=== PATIENT | male | born 1950 | race Caucasian/White ===

== ENCOUNTER 2018-10-18 12:46 | Emergency (ER) | payer BC, MEDICARE ==
[2018-10-18 12:51] VITALS: RESP 18
[2018-10-18] MEDS ORDERED: KETOROLAC 30 MG/ML 1 ML VIAL IVP STA (14:50)
[2018-10-18 14:53] LABS: Basophils # (A) 0.1 k/uL (0-0.2); Basophils % (A) 1 %; Eosinophils # (A) 0.3 k/uL (0-0.7); Eosinophils % (A) 2 %; HCT 43.2 % (39.0-53.0); HGB 14.2 gm/dL (13.0-17.5); Lymphocytes % (A) 13 %; MCH 29.3 pg (25.0-35.0); MCV 88.8 fL (80.0-100.0); Mean Platelet Volume 7.3; Monocytes % (A) 7 %; Neutrophils # (A) 11.5 k/uL (1.3-7.7); Neutrophils % (A) 76 %; Platelet Count 389 k/uL (150-450); RBC 4.87 m/uL (4.30-5.90); RDW 13.8 % (11.5-15.5); WBC 15.2 k/uL (3.8-10.6)
[2018-10-18] MEDS ORDERED: BENZOCAINE SPRAY 1 CAN TOPICAL STA (14:57)
--- NOTE | 2018-10-18 15:03 | ED ---
ENT HPI - General Chief complaint: ENT Stated complaint: Throat issue Time Seen by Provider: 10/18/18 14:08 Source: patient Mode of arrival: ambulatory Limitations: no limitations - History of Present Illness Initial comments: Patient is a 68-year-old male presenting to the emergency department with a sore throat. Patient reports the sore throat about 10 days ago when he visited urgent care and given steroids and antihistamine. Patient reports his symptoms improved david sundar it flared up again. Patient reports he went to urgent care again this morning where he was diagnosed with a peritonsillar abscess. The urgent care provider gave him a referral for the emergency department. Patient reports taking Tylenol to alleviate the pain. Patient reports dysphagia but denies fevers, headache, nausea, vomiting. Patient reports slight change in his voice. Patient denies any shortness of breath. - Related Data Previous Rx's Medication Instructions Recorded Clindamycin HCl 300 mg PO Q6HR #40 cap 10/18/18 predniSONE 50 mg PO DAILY #5 tab 10/18/18 Allergies Allergy/AdvReac Type Severity Reaction Status Date / Time No Known Allergies Allergy Verified 10/18/18 12:51 Review of Systems ROS Statement: Those systems with pertinent positive or pertinent negative responses have been documented in the HPI. ROS Other: All systems not noted in ROS Statement are negative. Past Medical History Past Medical History: Hyperlipidemia, Hypertension, Thyroid Disorder History of Any Multi-Drug Resistant Organisms: None Reported Past Surgical History: Back Surgery, Orthopedic Surgery Past Psychological History: No Psychological Hx Reported Smoking Status: Former smoker Past Alcohol Use History: Daily Past Drug Use History: None Reported General Exam Limitations: no limitations General appearance: alert, in no apparent distress Head exam: Present: atraumatic, normocephalic Eye exam: Present: normal appearance ENT exam: Present: mucous membranes moist, TM's normal bilaterally, other. Absent: normal oropharynx (Right peritonsillar swelling with mild contralateral uvular displacement.) Neck exam: Present: normal inspection. Absent: tenderness, lymphadenopathy Respiratory exam: Present: normal lung sounds bilaterally Cardiovascular Exam: Present: regular rate, normal rhythm, normal heart sounds Neurological exam: Present: alert, oriented X3 Psychiatric exam: Present: normal affect, normal mood Skin exam: Present: warm, intact, normal color Course Vital Signs 10/18/18 12:47 Temperature 98.2 F Pulse Rate 81 Respiratory 18 Rate Blood Pressure 140/78 O2 Sat by Pulse 99 Oximetry Procedures - Incision & Drainage Consent Obtained: verbal consent Site: other ([place]) Anesthetic Used: benzocaine 0.25% Sterile Field Used?: No Needle Aspiration Performed?: Yes Irrigation Performed?: No I&D Drainage Obtained: Pus, Blood Culture Obtained?: No Patient Tolerated Procedure: well Medical Decision Making - Medical Decision Making Patient is a 68-year-old male presents emergency department for a sore throat. CBC and CMP were obtained. Incision and drainage of the peritonsillar abscess was performed by Dr. Park. Patient was also given clindamycin and a liter of fluids. Patient will be discharged with a 10 day course of clindamycin and a 5 day course of prednisone.. Patient advised to follow-up with primary care. Patient advised to return to emergency department if symptoms worsen. Case discussed with physician. - Lab Data Result diagrams: 10/18/18 14:31 10/18/18 14:31 Lab Results 10/18/18 10/18/18 Range/Units 14:31 14:31 WBC 15.2 H (3.8-10.6) k/uL RBC 4.87 (4.30-5.90) m/uL Hgb 14.2 (13.0-17.5) gm/dL Hct 43.2 (39.0-53.0) % MCV 88.8 (80.0-100.0) fL MCH 29.3 (25.0-35.0) pg MCHC 33.0 (31.0-37.0) g/dL RDW 13.8 (11.5-15.5) % Plt Count 389 (150-450) k/uL Neutrophils % 76 % Lymphocytes % 13 % Monocytes % 7 % Eosinophils % 2 % Basophils % 1 % Neutrophils # 11.5 H (1.3-7.7) k/uL Lymphocytes # 2.0 (1.0-4.8) k/uL Monocytes # 1.0 (0-1.0) k/uL Eosinophils # 0.3 (0-0.7) k/uL Basophils # 0.1 (0-0.2) k/uL Sodium 139 (137-145) mmol/L Potassium 5.3 H (3.5-5.1) mmol/L Chloride 103 (98-107) mmol/L Carbon Dioxide 24 (22-30) mmol/L Anion Gap 12 mmol/L BUN 14 (9-20) mg/dL Creatinine 0.94 (0.66-1.25) mg/dL Est GFR (CKD-EPI)AfAm >90 (>60 ml/min/1.73 sqM) Est GFR (CKD-EPI)NonAf 85 (>60 ml/min/1.73 sqM) Glucose 107 H (74-99) mg/dL Calcium 10.1 (8.4-10.2) mg/dL Total Bilirubin 0.5 (0.2-1.3) mg/dL AST 22 (17-59) U/L ALT 28 (21-72) U/L Alkaline Phosphatase 100 (38-126) U/L Total Protein 8.7 H (6.3-8.2) g/dL Albumin 4.8 (3.5-5.0) g/dL Disposition Clinical Impression: Peritonsillar abscess determined by examination Disposition: HOME SELF-CARE Condition: Stable Instructions (If sedation given, give patient instructions): Peritonsillar Abscess (DC) Additional Instructions: Take prescribed medication as directed. Please follow-up with primary care. Please return to emergency department if symptoms worsen. Prescriptions: Clindamycin HCl 300 mg PO Q6HR #40 cap Is patient prescribed a controlled substance at d/c from ED?: No Referrals: Joseph Mendieta DO [Primary Care Provider] - 1-2 days
[2018-10-18] MEDS ORDERED: SODIUM CHLORIDE 0.9% 1,000 ML IV STA (15:04)
[2018-10-18 15:05] LABS: ALT 28 U/L (21-72); AST 22 U/L (17-59); Albumin 4.8 g/dL (3.5-5.0); Alkaline Phosphatase 100 U/L (38-126); Anion Gap 12 mmol/L; Blood Urea Nitrogen 14 mg/dL (9-20); Calcium 10.1 mg/dL (8.4-10.2); Carbon Dioxide 24 mmol/L (22-30); Chloride 103 mmol/L (98-107); Glucose 107 mg/dL (74-99); Potassium 5.3 mmol/L (3.5-5.1); Sodium 139 mmol/L (137-145); Total Bilirubin 0.5 mg/dL (0.2-1.3); Total Protein 8.7 g/dL (6.3-8.2)
[2018-10-18] MEDS ORDERED: CLINDAMYCIN 600 MG in DEXTROSE 5% IN WATER 50 ML IVPB ONE ×2 (17:00)
[2018-10-18 17:40] VITALS: BP 127/68; PULSE 72; TEMP 98.4
[2018-10-18] MEDS ORDERED: CLINDAMYCIN 150 MG/ML 4 ML VIAL IM SCH (18:00)
[2018-10-19] MEDS ORDERED: CLINDAMYCIN 600 MG in DEXTROSE 5% IN WATER 50 ML IVPB SCH ×2
== END 2018-10-18 17:39 | disposition home or self-care (01) ==
LOC: EC 12:46
DX: J36 Peritonsillar abscess (principal); Z87.891 Personal history of nicotine dependence
CPT/HCPCS: 36415; 80053; 85025; 99284; 42700; 96365; 96375; 96361; J1885

== ENCOUNTER → 2023-06-29 | Outpatient (CLI) | payer MEDICARE ==
[2023-06-29 09:47] VITALS: BP 147/78; PULSE 89; RESP 15; TEMP 98.7
--- NOTE | 2023-06-29 13:59 | P.PAINPG ---
PQRS Measure Charge Sheet Comment: HISTORY OF PRESENT ILLNESS: A 72 yr old male w at side as a referral from Dr Mendieta presents today w severe and chronic mid and lower back pain x 6 mo secondary to post laminectomy syndrome for evaluation. Pt states pain level is provoked at 9 /10 in intensity, constant, localized in the lumbar spine, predominantly axial, achy in character w occasional shooting pain towards the RLE. Pain is provoked by over activity. Pain is alleviated by PT 20 yrs ago, alternating heat & ice, medications (Tyl, Ibu), physician guided home stretches every morning x 2 mo which he currently does, repositioning and rest. Oswestry axial pain score at 37. PMH: OA, Hyperlipidemia, HTN, Hypothyroid Disorder PSH: Lumbar surgery SH: Former tobacco user, Daily ETOH use, No illicit drug use FH: Non contributory All: See list Meds: See list REVIEW OF ORGAN SYSTEMS: CONSTITUTIONAL: No fevers or chills. No recent weight loss. NEUROLOGICAL: + numbness and tingling along the distal extremities. No seizure disorders or headaches. MUSCULOSKELETAL: + pain PSYCHIATRIC: Denies current depression or suicidal thoughts. Physical Examinations : Constitutional : Cooperative , not in acute distress . Neurologic : Cranial nerve II to XII intact. No focal neurological deficits. Psychiatric : alert & oriented x 3. Matching mood & appropriate affect. Judgment & insight intact. Musculoskeletal : Cervical Spine Motor strength in the deltoid and biceps: Normal right side. Normal Left side Motor strength biceps and the wrist extensors: Normal right side . Normal left side Motor strength in the triceps muscle: Normal right side. Normal left side Deep tendon reflexes: Normal at the biceps. Normal at Brachioradialis. Normal at triceps Vertebral body tenderness to deep palpation over Cervical facet loading test: positive bilaterally Spurling test: positive bilaterally Neck distraction test: positive bilaterally Alvarado sign: positive bilaterally Lumbar spine Motor strength lower extremities ,thigh and legs 5/5 Right side , 5/5 Left side Deep tendon reflexes : Normal Knee J erk. Normal Ankle Jerk Vertebral body tenderness over L4 Capellan Test positive Lumbar facet Loading Test: positive Right / positive Left Range of motion of the lumbar spine Flexion 30 degrees, extension 10 degrees Straight Leg Raise test: Left/ Right positive at <30 degrees Abbey test: positive right / positive left. Severe tenderness over the Sacroiliac joint on the Right / Left sides Gaenslen test: positive bilaterally Seated flexion test: positive bilaterally. Sacral spine : Severe tenderness over the Sacroiliac joint: right side / left side Range of motion: Flexion of the lumbar spine <60 degrees Range of motion: Extension of the lumbar spine <20 degrees Gaenslen's Test positive Abbey test: positive right side / left side Thigh Thrust Test Sacral Thrust Test Imaging: MRI noncontrast of the lumbar spine from 04/06/23 reviewed Assessment/ Plan : Lumbar stenosis, lumbar DDD Recommendation of R TFESI L4-L5 #1. May need a series of injections for optimal pain relief. Risks, benefits of procedure discussed and patient verbalized understanding. Admits to anti- coagulant use or medical history of diabetes. Protocol for discontinuation/ continuation of medications yoko procedure discussed. All questions answered. I have spent greater than 30 minutes on patient care today. Dr Snow was available by phone for the evaluation of this patient. The time was used to review the medical records including relevant urine studies and Prescription history (MAPs), review of the available imaging, evaluation and examination of the patient, coordination of care with the medical staff and if applicable referring physicians, as well as creation of the medical record - Pain Location Bilateral Medial Back Non-Pharmacological Interventions: Heat, Ice, Inactivity, Position/Reposition Pharmacological Interventions: PRN Medication PQRS Narrative: Smoking Status Former smoker Home Medications: Ambulatory Orders clindamycin HCL [Clindamycin HCl] 300 mg PO Q6HR #40 cap 10/18/18 predniSONE 50 mg PO DAILY #5 tab 10/18/18 diazePAM [Valium] 5 mg PO DAILY PRN 1 Days #2 tab 06/29/23 Controlled Substance Measures - Controlled Substance Measures Is patient prescribed a controlled substance at discharge?: Yes When asked, does pt state using other controlled substances?: No If prescribed controlled substance>3 days was MAPS reviewed?: Prescribed <3 Days
== END ==
LOC: PNWHC3 08:48
PROVIDERS: ATTEND Specialist
DX: M48.061 Spinal stenosis, lumbar region without neurogenic claudication (principal); M51.16 Intervertebral disc disorders with radiculopathy, lumbar region; M47.26 Other spondylosis with radiculopathy, lumbar region; M19.90 Unspecified osteoarthritis, unspecified site; E78.5 Hyperlipidemia, unspecified; I10 Essential (primary) hypertension; E03.9 Hypothyroidism, unspecified; Z87.891 Personal history of nicotine dependence
CPT/HCPCS: 99211

== ENCOUNTER 2023-07-14 07:59 | Day surgery (SDC) | payer MEDICARE ==
[2023-07-10 14:35] VITALS: BMI 29.4
[~2023-07-14 07:59] MED LIST: LACTATED RINGERS 1,000 ML IV SCH
[2023-07-14 08:33] VITALS: TEMP 96.6
[2023-07-14] MEDS ORDERED: DEXAMETHASONE SOD PHOSPHATE 10 MG/ML 1 ML VIAL ONE (09:13)
[2023-07-14] MEDS ORDERED: IOPAMIDOL M300 15ML VIAL ONE (09:13)
[2023-07-14] MEDS ORDERED: ROPIVACAINE 5MG/ML 20ML VIAL ONE (09:13)
--- NOTE | 2023-07-14 09:50 | P.PCN ---
Description of Procedure: PREOPERATIVE DIAGNOSIS: 1-Lumbar radiculopathy . 2-lumbar degenerative disc disease. 3-lumbar spondylosis with lumbar facet arthropathy without myelopathy POSTOPERATIVE DIAGNOSIS: 1-lumbar radiculopathy. 2-lumbar degenerative disc disease. 3-lumbar spondylosis with facet arthropathy without myelopathy PROCEDURE 1. Transforaminal epidural steroid injection under fluoroscopic guidance at RIGHT L4-5 level. (Fluoroscopy images stored on file in the radiology Department ) 2. Lumbar epidurogram . ANESTHESIA: Local with 1% lidocaine 5 ml. subcutaneously. Continuous pulse ox, EKG, blood pressure and verbal communication was maintained with the patient. EBL: Minimal PROCEDURE INDICATION: The patient with low back pain and radiculopathy symptoms unresponsive to conservative treatment. The patient was seen and identified in the preoperative area. Risks, benefits, complications, and alternatives were discussed with the patient. The patient agreed to proceed with the procedure and signed the consent. IV was started, and vital signs were stable. PROCEDURE DESCRIPTION / TECHNIQUE: After getting consent, patient was taken to the OR and time out was completed. The patient was placed in the prone position on procedure table and a pillow was placed under the abdomen to reduce lumbar lordosis. The lumbosacral area was prepped and draped in the usual sterile fashion. Critical pause was taken. After injecting 5 mL of plain 1% lidocaine subcutaneously, under oblique view of the fluoroscope, a 22-gauge spinal needle was introduced under the tunnel view of the fluoroscope on the RIGHT side and the needle was advanced so that the tip of the needle was at the posterior inferior quadrant of the intervertebral foramen at the lateral view of the fluoroscope and in the lateral third of the facet column in the AP view of the fluoroscope. Negative CSF, negative blood, negative paresthesia. After needle position confirmation by AP and cross table lateral view, 3 mL of Isovue-M 200 contrast was injected under continuous fluoroscope. No contrast was noted in the intrathecal or intravascular space. The epidurogram was noted. Again after repeated negative aspiration 2.5 mL solution was injected which consists 1.5 mL of normal saline mixed with 1 mL of 20 mg dexamethasone. Needle was removed . At the end of the procedure, skin was cleansed, and bandages were applied. DISPOSITION / PLANS: No complication. The patient tolerated the procedure well. The patient was placed in a supine position and transferred to the recovery area in a stable condition for observation. There was no evidence of lower extremity motor or sensory deficit after the procedure. Patient was discharged from the recovery room after meeting discharge criteria. Home discharge instructions were given to the patient by the staff. The patient was reexamined prior to discharge. CONSIDER CAUDAL SHELDON NEXT PROCEDURE
[2023-07-14] MEDS: HYDROcodone/APAP 7.5-325MG 1 EACH TAB PO ONE (09:55)
[2023-07-14 11:07] VITALS: BP 127/78; PULSE 78; RESP 18
--- NOTE | 2023-07-14 11:16 | FL ---
EXAMINATION TYPE: FL guided pain mgmt statistic Intraoperative/procedural fluoroscopic services were provided. Total fluoroscopy time is 66.5 seconds with a total of 3 submitted images to PACS. Please s ee the operative/procedural note for further details. DAP: [id number] mGym2
== END 2023-07-14 11:03 | disposition home or self-care (01) ==
LOC: ORPAIN 07:59
PROVIDERS: ATTEND Pain Medicine Interventional Pain Medicine
DX: M51.16 Intervertebral disc disorders with radiculopathy, lumbar region (principal); M47.26 Other spondylosis with radiculopathy, lumbar region
CPT/HCPCS: 64483; J1100; Q9967; J2795

== ENCOUNTER → 2023-08-05 | Outpatient (CLI) | payer MEDICARE ==
[2023-08-05 09:25] VITALS: BP 123/63; PULSE 89; RESP 15; TEMP 98.6
--- NOTE | 2023-08-05 12:40 | P.PAINPG ---
PQRS Measure Charge Sheet Comment: HISTORY OF PRESENT ILLNESS: A 72 yr old male w at side presents today w severe and chronic mid and lower back pain x 6 mo secondary to post laminectomy syndrome for evaluation s/p R TFESI L4-L5 #1. Pt states he experienced 70 % pain relief x 3 wks s/p procedure. Pt states pain level is provoked at 5 /10 in intensity, constant, localized in the lumbar spine, predominantly axial, achy in character w occasional shooting pain towards the RLE. Pain is provoked by over activity. Pain is alleviated by PT 20 yrs ago, alternating heat & ice, medications, physician guided home stretches every morning x 2 mo which he currently does, repositioning and rest. Oswestry axial pain score at 34. Interventional procedures include R TFESI L4-L5 x1 Medications include Tyl, Ibu REVIEW OF ORGAN SYSTEMS: CONSTITUTIONAL: No fevers or chills. No recent weight loss. NEUROLOGICAL: + numbness and tingling along the distal extremities. No seizure disorders or headaches. MUSCULOSKELETAL: + pain PSYCHIATRIC: Denies current depression or suicidal thoughts. Physical Examinations : Constitutional : Cooperative , not in acute distress . Neurologic : Cranial nerve II to XII intact. No focal neurological deficits. Psychiatric : alert & oriented x 3. Matching mood & appropriate affect. Judgment & insight intact. Musculoskeletal : Cervical Spine Motor strength in the deltoid and biceps: Normal right side. Normal Left side Motor strength biceps and the wrist extensors: Normal right side . Normal left side Motor strength in the triceps muscle: Normal right side. Normal left side Deep tendon reflexes: Normal at the biceps. Normal at Brachioradialis. Normal at triceps Vertebral body tenderness to deep palpation over Cervical facet loading test: positive bilaterally Spurling test: positive bilaterally Neck distraction test: positive bilaterally Alvarado sign: positive bilaterally Lumbar spine Motor strength lower extremities ,thigh and legs 5/5 Right side , 5/5 Left side Deep tendon reflexes : Normal Knee Jerk. Normal Ankle Jerk Vertebral body tenderness over L4 Capellan Test positive Lumbar facet Loading Test: positive Right / positive Left Range of motion of the lumbar spine Flexion 30 degrees, extension 10 degrees Straight Leg Raise test: Left/ Right positive at <30 degrees Abbey test: positive right / positive left. Severe tenderness over the Sacroiliac joint on the Right / Left sides Gaenslen test: positive bilaterally Seated flexion test: positive bilaterally. Sacral spine : Severe tenderness over the Sacroiliac joint: right side / left side Range of motion: Flexion of the lumbar spine <60 degrees Range of motion: Extension of the lumbar spine <20 degrees Gaenslen's Test positive Abbey test: positive right side / left side Thigh Thrust Test Sacral Thrust Test Imaging: MRI noncontrast of the lumbar spine from 04/06/23 reviewed Assessment/ Plan : Lumbar stenosis, lumbar DDD Recommendation of PT x 6 wks w a focus on traction/ decompression of the lumbars tri. Recommendation of medication management Lyrica 75mg to titrate within 1 wk #60 w 1 RF. Use, side effects, adverse reactions, safe storage discussed. Opiate/ narcotic agreement signed 08/05/23 All questions answered. I have spent greater than 30 minutes on patient care today. Dr Snow was available by phone for the evaluation of this patient. The time was used to review the medical records including relevant urine studies and Prescription history (MAPs), review of the available imaging, evaluation and examination of the patient, coordination of care with the medical staff and if applicable referring physicians, as well as creation of the medical record PQRS Narrative: Smoking Status Former smoker Hx Alcohol Use (MH) No Home Medications: Ambulatory Orders diazePAM [Valium] 5 mg PO DAILY PRN 1 Days #2 tab 06/29/23 Acetaminophen [Tylenol Extra Strength] 500 - 1,000 mg PO Q4-6H PRN 07/10/23 Atorvastatin [Lipitor] 20 mg PO HS 07/10/23 Fenofibrate,Micronized [Fenofibrate] 134 mg PO QAM 07/10/23 Ibuprofen [Motrin Ib] 600 mg PO Q8H PRN 07/10/23 Levothyroxine Sodium 150 mcg PO QAM 07/10/23 lisinopriL [Prinivil] 10 mg PO QAM 07/10/23 Pregabalin [Lyrica] 75 mg PO BID 30 Days #60 cap 08/05/23 Controlled Substance Measures - Controlled Substance Measures Is patient prescribed a controlled substance at discharge?: Yes When asked, does pt state using other controlled substances?: No If prescribed controlled substance>3 days was MAPS reviewed?: Yes If Rx opioid, was Start Talking consent form obtained?: Yes Was information provided regarding opioid addiction?: Yes
== END ==
LOC: PNWHC3 08:31
PROVIDERS: ATTEND Specialist
DX: M51.36 Other intervertebral disc degeneration, lumbar region (principal); M47.816 Spondylosis without myelopathy or radiculopathy, lumbar region; M48.061 Spinal stenosis, lumbar region without neurogenic claudication; F12.90 Cannabis use, unspecified, uncomplicated; Z87.891 Personal history of nicotine dependence
CPT/HCPCS: 99211

== ENCOUNTER → 2023-09-30 | Outpatient (CLI) | payer MEDICARE ==
[2023-09-30 09:51] VITALS: BP 148/81; PULSE 57; RESP 16; TEMP 97.9
--- NOTE | 2023-09-30 15:48 | P.PAINPG ---
PQRS Measure Charge Sheet Comment: HISTORY OF PRESENT ILLNESS: A 72 yr old male w at side presents today w severe and chronic mid and lower back pain x 6 mo secondary to lumbar DDD, stenosis and facet arthropathy without myelopathy for medication refills. Pt states pain level is provoked at 5 /10 in intensity, constant, localized in the lumbar spine, predominantly axial, achy in character w occasional shooting pain towards the RLE. Pain is provoked by over activity. Pain is alleviated by PT x 6 wks which was completed Aug 2023, alternating heat & ice, medications, physician guided home stretches every morning x 2 mo which he currently does, repositioning and rest. Oswestry axial pain score at 34. Pt stated he will seek out a [facility] orthopedic surgeon for additional treatment options and continue to go to [place] [facility]. Interventional procedures include R TFESI L4-L5 x1 Medications include Tyl, Ibu REVIEW OF ORGAN SYSTEMS: CONSTITUTIONAL: No fevers or chills. No recent weight loss. NEUROLOGICAL: + numbness and tingling along the distal extremities. No seizure disorders or headaches. MUSCULOSKELETAL: + pain PSYCHIATRIC: Denies current depression or suicidal thoughts. Physical Examinations : Constitutional : Cooperative , not in acute distress . Neurologic : Cranial nerve II to XII intact. No focal neurological deficits. Psychiatric : alert & oriented x 3. Matching mood & appropriate affect. Judgment & insight intact. Musculoskeletal : Cervical Spine Motor strength in the deltoid and biceps: Normal right side. Normal Left side Motor strength biceps and the wrist extensors: Normal right side . Normal left side Motor strength in the triceps muscle: Normal right side. Normal left side Deep tendon reflexes: Normal at the biceps. Normal at Brachioradialis. Normal at triceps Vertebral body tenderness to deep palpation over Cervical facet loading test: positive bilaterally Spurling test: positive bilaterally Neck distraction test: positive bilaterally Alvarado sign: positive bilaterally Lumbar spine Motor strength lower extremities ,thigh and legs 5/5 Right side , 5/5 Left side Deep tendon reflexes : Normal Knee Jerk. Normal Ankle Jerk Vertebral body tenderness over L3 Capellan Test positive BL L3-L4 Lumbar facet Loading Test: positive Right / positive Left Range of motion of the lumbar spine Flexion 30 degrees, extension 10 degrees Straight Leg Raise test: Left/ Right positive at <30 degrees Abbey test: positive right / positive left. Severe tenderness over the Sacroiliac joint on the Right / Left sides Gaenslen test: positive bilaterally Seated flexion test: positive bilaterally. Sacral spine : Severe tenderness over the Sacroiliac joint: right side / left side Range of motion: Flexion of the lumbar spine <60 degrees Range of motion: Extension of the lumbar spine <20 degrees Gaenslen's Test positive Abbey test: positive right side / left side Thigh Thrust Test Sacral Thrust Test Imaging: MRI noncontrast of the lumbar spine from 04/06/23 reviewed Assessment/ Plan : Lumbar stenosis, lumbar DDD Recommendation of medication management. [place] 7.5/325gm #30 w 1 RF. [place] Opiate agreement signed . Lyrica 75mg #60 w 1 RF. Use, side effects, adverse reactions, safe storage discussed. Lyrica Opiate/ narcotic agreement signed 08/05/23 All questions answered. I have spent greater than 30 minutes on patient care today. Dr Snow was available by phone for the evaluation of this patient. The time was used to review the medical records including relevant urine studies and Prescription history (MAPs), review of the available imaging, evaluation and examination of the patient, coordination of care with the medical staff and if applicable refer ring physicians, as well as creation of the medical record - Pain Location Bilateral Lower Back Non-Pharmacological Interventions: Heat, Ice, Inactivity, Massage, Physical Therapy, Position/Reposition, Stretching Pharmacological Interventions: Epidural, PRN Medication, Topical Medication PQRS Narrative: Smoking Status Former smoker Hx Alcohol Use (MH) No Home Medications: Ambulatory Orders diazePAM [Valium] 5 mg PO DAILY PRN 1 Days #2 tab 06/29/23 Acetaminophen [Tylenol Extra Strength] 500 - 1,000 mg PO Q4-6H PRN 07/10/23 Atorvastatin [Lipitor] 20 mg PO HS 07/10/23 Fenofibrate,Micronized [Fenofibrate] 134 mg PO QAM 07/10/23 Ibuprofen [Motrin Ib] 600 mg PO Q8H PRN 07/10/23 Levothyroxine Sodium 150 mcg PO QAM 07/10/23 lisinopriL [Prinivil] 10 mg PO QAM 07/10/23 HYDROcodone/APAP 7.5-325MG [[place] 7.5-325] 1 tab PO QAM PRN 30 Days #30 tab 09/30/23 HYDROcodone/APAP 7.5-325MG [[place] 7.5-325] 1 tab PO QAM PRN 30 Days #30 tab 09/30/23 Pregabalin [Lyrica] 75 mg PO BID 30 Days #60 cap 09/30/23 Controlled Substance Measures - Controlled Substance Measures Is patient prescribed a controlled substance at discharge?: Yes When asked, does pt state using other controlled substances?: Yes If prescribed controlled substance>3 days was MAPS reviewed?: Yes
== END ==
LOC: PNWHC3 08:34
PROVIDERS: ATTEND Specialist
DX: M51.36 Other intervertebral disc degeneration, lumbar region (principal); M47.816 Spondylosis without myelopathy or radiculopathy, lumbar region; G89.29 Other chronic pain; M48.061 Spinal stenosis, lumbar region without neurogenic claudication; Z87.891 Personal history of nicotine dependence
CPT/HCPCS: 99211

== ENCOUNTER 2023-10-20 06:12 | Day surgery (SDC) | payer MEDICARE ==
[2023-10-20 06:56] VITALS: RESP 16; TEMP 96.9
[2023-10-20] MEDS ORDERED: IOPAMIDOL M200 10 ML VIAL ONE (07:13)
[2023-10-20] MEDS ORDERED: ROPIVACAINE 5MG/ML 20ML VIAL ONE (07:13)
[2023-10-20] MEDS ORDERED: TRIAMCINOLONE ACETONIDE 40 MG/ML 1 ML VIAL ONE (07:13)
--- NOTE | 2023-10-20 07:29 | P.PCN ---
Date of Procedure: 10/20/23 Surgeon: Aislinn Daly Pathology: none sent Condition: stable Disposition: PACU Description of Procedure: PREOPERATIVE DIAGNOSIS: 1-Lumbar radiculopathy 2- Lumber Degenerative Disc Diseases. 3-lumbar stenosis 4-postlaminectomy pain syndrome POSTOPERATIVE DIAGNOSIS: 1-Lumbar radiculopathy. 2-Lumbar Degenerative Disc Diseases PROCEDURE 1. Lumbar epidural steroid injection under fluoroscopic guidance at the L2-3 level the right paramedian approach 2. Lumbar epidurogram. 3.lumbar stenosis 4. Postlaminectomy pain syndrome ANESTHESIA: Local only with 1% lidocaine EBL: Minimal PROCEDURE INDICATION: The patient with low back pain and radiculitis symptoms unresponsive to conservative treatment. Fluoroscopy was used to optimize visualization of the needle placement and to maximize safety. The procedure was done at the L2-L3 level instead of L3-L4 level to have some distance from the patient's scar tissue from previous back surgery which puts him at higher risk for dural puncture. PROCEDURE DESCRIPTION / TECHNIQUE: The patient was seen and identified in the preoperative area. Risks, benefits, complications including but not limited to infections ,bleeding ,allergic reaction to the medications ,nerve damage and not complete pain relief , and alternatives were discussed with the patient. The patient agreed to proceed with the procedure and signed the consent. IV was started, and vital signs were stable. Patient was taken to the OR and time out was completed. The patient was placed in the prone position on procedure table and a pillow was placed under the abdomen to reduce lumbar lordosis. The lumbosacral area was prepped and draped in the usual sterile fashion with ChloraPrep.Patient was closely monitored during the procedure. Conscious sedation was used during the procedure to decrease patients anxiety. Vital signs were monitered during the entire procedure. Using anterior-posterior fluoroscopy, the L2-3 interlaminar space was identified and the skin over this site was marked and then infiltrated with 1% lidocaine subcutaneously. Subsequently, a 20-gauge Tuohy epidural needle was inserted and advanced toward the epidural space using the Loss of resistance to air technique and guided by AP and lateral fluoroscopy. The correct needle position in the epidural space was verified with the injection of 1 mL of the water soluble contrast dye Omnipaque 180 contrast and observing an excellent epidurogram with the epidural spread of the dye, after negative aspiration for blood and CSF and in the absence of paresthesias. Again after negative aspiration, a 8 ml mixture containing 40 mg of Kenalog and 5 ml of preservative free Normal Saline, and 2 ml of preservative free Ropivacaine 0.5% solution was injected and a washout of epidurogram was seen. Needle was withdrawn intact, skin was cleansed, and bandages were applied. patient tolerated procedure well and was transferred to PACU in stable condition.A copy of the needle placement picture was saved to the fluoroscopy machine. COMPLICATIONS: None DISPOSITION / PLANS: The patient was placed in a supine position and transferred to the recovery area in a stable condition for observation. There was no evidence of lower extremity motor or sensory deficit after the procedure. Patient was discharged from the recovery room after meeting discharge criteria. Home discharge instructions were given to the patient by the staff. The patient was reexamined prior to discharge. The patient will schedule a follow up in the clinic in 2-4 weeks.
[2023-10-20 07:51] VITALS: BP 102/60; PULSE 54
--- NOTE | 2023-10-20 11:42 | FL ---
EXAMINATION TYPE: FL guided pain mgmt statistic DATE OF EXAM: 10/20/2023 FLUOROSCOPY 6 SEC FLUORO, DAP .[id number] mGym2. Upper lumbar epidural steroid injection. 2 images are provided.
== END 2023-10-20 07:58 | disposition home or self-care (01) ==
LOC: ORPAIN 06:12
PROVIDERS: ATTEND Anesthesiology
DX: M51.16 Intervertebral disc disorders with radiculopathy, lumbar region (principal); M48.061 Spinal stenosis, lumbar region without neurogenic claudication; M96.1 Postlaminectomy syndrome, not elsewhere classified; Z79.899 Other long term (current) drug therapy
CPT/HCPCS: 62323; J3301; Q9966; J2795

== ENCOUNTER → 2023-11-23 | Outpatient (CLI) | payer MEDICARE ==
[2023-11-23 07:48] VITALS: BP 133/63; PULSE 57; RESP 16
--- NOTE | 2023-11-23 13:13 | P.PAINPG ---
PQRS Measure Charge Sheet Comment: HISTORY OF PRESENT ILLNESS: A 73 yr old male w at side presents today w severe and chronic mid and lower back pain x 6 mo secondary to lumbar DDD, stenosis and facet arthropathy without myelopathy for medication refills and evaluation s/p R paramedian SEHLDON L1-L2 #1. Pt states he experienced 50 % pain relief x 5 wks s/p procedure. Pt states pain level is provoked at 5 /10 in intensity, constant, localized in the lumbar spine, predominantly axial, achy in character w occasional shooting pain towards the RLE. Pain is provoked by over activity. Pain is alleviated by PT x 6 wks which was completed Aug 2023, alternating heat & ice, medications, physician guided home stretches every morning since Aug 2023, repositioning and rest. Oswestry axial pain score at 34. Pt stated he smoked cannabis one time last night to help him sleep. Interventional procedures include R TFESI L4-L5 x1, SHELDON L1-L2 x1 Medications include [place], Lyrica, Tyl, Ibu REVIEW OF ORGAN SYSTEMS: CONSTITUTIONAL: No fevers or chills. No recent weight loss. NEUROLOGICAL: + numbness and tingling along the distal extremities. No seizure disorders or headaches. MUSCULOSKELETAL: + pain PSYCHIATRIC: Denies current depression or suicidal thought s. Physical Examinations : Constitutional : Cooperative , not in acute distress . Neurologic : Cranial nerve II to XII intact. No focal neurological deficits. Psychiatric : alert & oriented x 3. Matching mood & appropriate affect. Judgment & insight intact. Musculoskeletal : Cervical Spine Motor strength in the deltoid and biceps: Normal right side. Normal Left side Motor strength biceps and the wrist extensors: Normal right side . Normal left side Motor strength in the triceps muscle: Normal right side. Normal left side Deep tendon reflexes: Normal at the biceps. Normal at Brachioradialis. Normal at triceps Vertebral body tenderness to deep palpation over Cervical facet loading test: positive bilaterally Spurling test: positive bilaterally Neck distraction test: positive bilaterally Alvarado sign: positive bilaterally Lumbar spine Motor strength lower extremities ,thigh and legs 5/5 Right side , 5/5 Left side Deep tendon reflexes : Normal Knee Jerk. Normal Ankle Jerk Vertebral body tenderness over L3 Capellan Test positive BL L3-L4 Lumbar facet Loading Test: positive Right / positive Left Range of motion of the lumbar spine Flexion 30 degrees, extension 10 degrees Straight Leg Raise test: Left/ Right positive at <30 degrees Abbey test: positive right / positive left. Severe tenderness over the Sacroiliac joint on the Right / Left sides Gaenslen test: positive bilaterally Seated flexion test: positive bilaterally. Sacral spine : Severe tenderness over the Sacroiliac joint: right side / left side Range of motion: Flexion of the lumbar spine <60 degrees Range of motion: Extension of the lumbar spine <20 degrees Gaenslen's Test positive Abbey test: positive right side / left side Thigh Thrust Test Sacral Thrust Test Imaging: MRI noncontrast of the lumbar spine from 04/06/23 reviewed Assessment/ Plan : Lumbar stenosis, lumbar DDD Recommendation of medication management. Reminded not to use THC or alcohol products while on narcotics. [place] 7.5/325gm #30 w 1 RF. [place] Opiate agreement signed . Lyrica 75mg #60 w 1 RF. Use, side effects, adverse reactions, safe storage discussed. Lyrica Opiate/ narcotic agreement signed 08/05/23. Add Narcan w use described. All questions answered. I have spent greater than 30 minutes on patient care today. Dr Sonw was available by phone for the evaluation of this patient. The time was used to review the medical records including relevant urine studies and Prescription history (MAPs), review of the available imaging, evaluation and examination of the patient, coordination of care with the medical staff and if applicable referring physicians, as well as creation of the medical record - Pain Location Lower Back Non-Pharmacological Interventions: Heat, Ice Pharmacological Interventions: Medication PQRS Narrative: Smoking Status Former smoker Hx Alcohol Use (MH) No Home Medications: Ambulatory Orders Acetaminophen [Tylenol Extra Strength] 500 - 1,000 mg PO Q4-6H PRN 07/10/23 Atorvastatin [Lipitor] 20 mg PO HS 07/10/23 Levothyroxine Sodium 150 mcg PO QAM 07/10/23 lisinopriL [Prinivil] 10 mg PO QAM 07/10/23 Fenofibrate Nanocrystallized [Fenofibrate] 145 mg PO DAILY 10/14/23 Multivitamins, Thera [Multivitamin (formulary)] 1 tab PO DAILY 10/14/23 diazePAM [Valium] 5 mg PO DAILY PRN 1 Days #2 tab 10/15/23 HYDROcodone/APAP 7.5-325MG [[place] 7.5-325] 1 tab PO DAILY PRN 30 Days #30 tab 11/23/23 HYDROcodone/APAP 7.5-325MG [[place] 7.5-325] 1 tab PO QAM PRN 30 Days #30 tab 11/23/23 Naloxone HCl [Narcan] 4 mg NASAL ONCE PRN 365 Days #1 each 11/23/23 Pregabalin [Lyrica] 75 mg PO BID 30 Days #60 cap 11/23/23 Controlled Substance Measures - Controlled Substance Measures Is patient prescribed a controlled substance at discharge?: Yes When asked, does pt state using other controlled substances?: No If prescribed controlled substance>3 days was MAPS reviewed?: Yes
== END ==
LOC: PNWHC3 07:32
PROVIDERS: ATTEND Specialist
DX: M51.36 Other intervertebral disc degeneration, lumbar region (principal); M48.061 Spinal stenosis, lumbar region without neurogenic claudication; Z87.891 Personal history of nicotine dependence
CPT/HCPCS: 99211

== ENCOUNTER → 2024-01-18 | Outpatient (CLI) | payer MEDICARE ==
[2024-01-18 08:50] VITALS: BP 118/72; PULSE 52; RESP 16; TEMP 97.1
--- NOTE | 2024-01-18 14:24 | P.PAINPG ---
Objective - Vital Signs Vital signs: Vital Signs Temp 97.1 F L 01/18/24 08:44 Pulse 52 L 01/18/24 08:44 Resp 16 01/18/24 08:44 BP 118/72 01/18/24 08:44 Pulse Ox 98 01/18/24 08:44 FiO2 Intake & Output 01/17/24 01/18/24 01/18/24 18:59 06:59 18:59 Weight 95.254 kg PQRS Measure Charge Sheet Mode of Arrival: Ambulatory Comment: HISTORY OF PRESENT ILLNESS: A 73 yr old male w at side presents today w severe and chronic mid and lower back pain x 6 mo secondary to lumbar DDD, stenosis and facet arthropathy without myelopathy for medication refills. Pt states pain level is provoked at 5 /10 in intensity, constant, localized in the lumbar spine, predominantly axial, achy in character w occasional shooting pain towards the RLE. Pain is provoked by over activity. Pain is alleviated by PT x 6 wks which was completed Aug 2023, alternating heat & ice, medications, physician guided home stretches every morning since Aug 2023, repositioning and rest. Pt previously stated he smoked cannabis one time at prior appt. Interventional procedures include R TFESI L4-L5 x1, SHELDON L1-L2 x1 Medications include [place], Lyrica, Tyl, Ibu, THC products which he discontinued REVIEW OF ORGAN SYSTEMS: CONSTITUTIONAL: No fevers or chills. No recent weight loss. NEUROLOGICAL: + numbness and tingling along the distal extremities. No seizure disorders or headaches. MUSCULOSKELETAL: + pain PSYCHIATRIC: Denies current depression or suicidal thoughts. Physical Examinations : Constitutional : Cooperative , not in acute distress . Neurologic : Cranial nerve II to XII intact. No focal neurological deficits. Psychiatric : alert & oriented x 3. Matching mood & appropriate affect. Judgment & insight intact. Musculoskeletal : Cervical Spine Motor strength in the deltoid and biceps: Normal right side. Normal Left side Motor strength biceps and the wrist extensors: Normal right side . Normal left side Motor strength in the triceps muscle: Normal right side. Normal left side Deep tendon reflexes: Normal at the biceps. Normal at Brachioradialis. Normal at triceps Vertebral body tenderness to deep palpation over Cervical facet loading test: positive bilaterally Spurling test: positive bilaterally Neck distraction test: positive bilaterally Alvarado sign: positive bilaterally Lumbar spine Motor strength lower extremities ,thigh and legs 5/5 Right side , 5/5 Left side Deep tendon reflexes : Normal Knee Jerk. Normal Ankle Jerk Vertebral body tenderness over L3 Capellan Test positive BL L3-L4 Lumbar facet Loading Test: positive Right / positive Left Range of motion of the lumbar spine Flexion 30 degrees, extension 10 degrees Straight Leg Raise test: Left/ Right positive at <30 degrees Abbey test: positive right / positive left. Severe tenderness over the Sacroiliac joint on the Right / Left sides Gaenslen test: positive bilaterally Seated flexion test: positive bilaterally. Sacral spine : Severe tenderness over the Sacroiliac joint: right side / left side Range of motion: Flexion of the lumbar spine <60 degrees Range of motion: Extension of the lumbar spine <20 degrees Gaenslen's Test positive Abbey test: positive right side / left side Thigh Thrust Test Sacral Thrust Test Imaging: MRI noncontrast of the lumbar spine from 04/06/23 reviewed Assessment/ Plan : Lumbar stenosis, lumbar DDD Recommendation of medication management. UDS collected 01/18/24. [place] 7.5/325gm #30 w 1 RF. [place] Opiate agreement signed . Lyrica 75mg #60 w 1 RF. Use, side effects, adverse reactions, safe storage discussed. Lyrica Opiate/ narcotic agreement signed 08/05/23. Pt stated he has Narcan. All questions answered. I have spent greater than 30 minutes on patient care today. Dr Snow was available by phone for the evaluation of this patient. The time was used to review the medical records including relevant urine studies and Prescription history (MAPs), review of the available imaging, evaluation and examination of the patient, coordination of care with the medical staff and if applicable referring physicians, as well as creation of the medical record - Pain Location Bilateral Lower Back Non-Pharmacological Interventions: Heat, Ice, Massage, Physical Therapy, Position/Reposition Pharmacological Interventions: Epidural, PRN Medication, Scheduled Medication PQRS Narrative: Smoking Status Former smoker Blood Pressure 118/72 Pain Intensity [Bilateral 7 Lower Back] Scale Used Numeric (1 - 10) Hx Alcohol Use (MH) No Home Medications: Ambulatory Orders Acetaminophen [Tylenol Extra Strength] 500 - 1,000 mg PO Q4-6H PRN 07/10/23 Atorvastatin [Lipitor] 20 mg PO HS 07/10/23 Levothyroxine Sodium 150 mcg PO QAM 07/10/23 lisinopriL [Prinivil] 10 mg PO QAM 07/10/23 Fenofibrate Nanocrystallized [Fenofibrate] 145 mg PO DAILY 10/14/23 Multivitamins, Thera [Multivitamin (formulary)] 1 tab PO DAILY 10/14/23 diazePAM [Valium] 5 mg PO DAILY PRN 1 Days #2 tab 10/15/23 HYDROcodone/APAP 7.5-325MG [[place] 7.5-325] 1 tab PO DAILY PRN 30 Days #30 tab 11/23/23 HYDROcodone/APAP 7.5-325MG [[place] 7.5-325] 1 tab PO QAM PRN 30 Days #30 tab 11/23/23 Naloxone HCl [Narcan] 4 mg NASAL ONCE PRN 365 Days #1 each 11/23/23 Pregabalin [Lyrica] 75 mg PO BID 30 Days #60 cap 11/23/23 Controlled Substance Measures - Controlled Substance Measures Is patient prescribed a controlled substance at discharge?: Yes When asked, does pt state using other controlled substances?: Yes If prescribed controlled substance>3 days was MAPS reviewed?: Yes
== END ==
LOC: PNWHC3 07:44
PROVIDERS: ATTEND Specialist
DX: M54.16 Radiculopathy, lumbar region
CPT/HCPCS: 99212

== ENCOUNTER → 2024-03-14 | Outpatient (CLI) | payer MEDICARE ==
[2024-03-14 08:21] VITALS: BP 120/72; PULSE 65; RESP 16
--- NOTE | 2024-03-14 10:24 | P.PAINPG ---
PQRS Measure Charge Sheet Comment: HISTORY OF PRESENT ILLNESS: A 73 yr old male w at side presents today w severe and chronic mid and lower back pain x 6 mo secondary to radiculopathy, stenosis and facet arthropathy without myelopathy for medication refills. Pt states pain level is provoked at 5-8 /10 in intensity, constant, localized in the lumbar spine, predominantly axial, achy in character w occasional shooting pain towards the BLEs R> L. Pain is provoked by over activity. Pain is alleviated by PT x 6 wks which was completed Aug 2023, physician guided home stretches every morning since Aug 2023, alternating heat & ice, medications, repositioning and rest. Interventional procedures include SHELDON L2-L3 x1, R TFESI L4-L5 x1, SHELDON L1-L2 x1 Medications include [place], Lyrica, Tyl, Ibu, THC products which he discontinued REVIEW OF ORGAN SYSTEMS: CONSTITUTIONAL: No fevers or chills. No recent weight loss. NEUROLOGICAL: + numbness and tingling along the distal extremities. No seizure disorders or headaches. MUSCULOSKELETAL: + pain PSYCHIATRIC: Denies current depression or suicidal thoughts. Physical Examinations : Constitutional : Cooperative , not in acute distress . Neurologic : Cranial nerve II to XII intact. No focal neurological deficits. Psychiatric : alert & oriented x 3. Matching mood & appropriate affect. Judgment & insight intact. Musculoskeletal : Cervical Spine Motor strength in the deltoid and biceps: Normal right side. Normal Left side Motor strength biceps and the wrist extensors: Normal right side . Normal left side Motor strength in the triceps muscle: Normal right side. Normal left side Deep tendon reflexes: Normal at the biceps. Normal at Brachioradialis. Normal at triceps Vertebral body tenderness to deep palpation over Cervical facet loading test: positive bilaterally Spurling test: positive bilaterally Neck distraction test: positive bilaterally Alvarado sign: positive bilaterally Lumbar spine Motor strength lower extremities ,thigh and legs 5/5 Right side , 5/5 Left side Deep tendon reflexes : Normal Knee Jerk. Normal Ankle Jerk Vertebral body tenderness over L2 Capellan Test positive R> L L2- L3 Lumbar facet Loading Test: positive Right / positive Left Range of motion of the lumbar spine Flexion 30 degrees, extension 10 degrees Straight Leg Raise test: Left/ Right positive at <30 degrees Abbey test: positive right / positive left. Severe tenderness over the Sacroiliac joint on the Right / Left sides Gaenslen test: positive bilaterally Seated flexion test: positive bilaterally. Sacral spine : Severe tenderness over the Sacroiliac joint: right side / left side Range of motion: Flexion of the lumbar spine <60 degrees Range of motion: Extension of the lumbar spine <20 degrees Gaenslen's Test positive Abbey test: positive right side / left side Thigh Thrust Test Sacral Thrust Test Imaging: MRI noncontrast of the lumbar spine from 04/06/23 reviewed Assessment/ Plan : Lumbar stenosis, lumbar radiculopathy Recommendation of SHELDON R paramedian L2-L3 #2 and medication management. Risks, benefits of procedure discussed and pt verbalized understanding. Protocol for discontinuation/ continuation of medications yoko procedure discussed. UDS from 01/18/24 reviewed and consistent. [place] 7.5/325gm #30 w 1 RF. [place] Opiate agreement signed . Lyrica 75mg #60 w 1 RF. Use, side effects, adverse reactions, safe storage discussed. Lyrica Opiate/ narcotic agreement signed 08/05/23. Pt stated he has Narcan. All questions answered. I have spent greater than 30 minutes on patient care today. Dr Snow was available by phone for the evaluation of this patient. The time was used to review the medical records including relevant urine studies and Prescription history (MAPs), review of the available imaging, evaluation and examination of the patient, coordination of care with the medical staff and if applicable referring physicians, as well as creation of the medical record PQRS Narrative: Smoking Status Former smoker Hx Alcohol Use (MH) No Home Medications: Ambulatory Orders Acetaminophen [Tylenol Extra Strength] 500 - 1,000 mg PO Q4-6H PRN 07/10/23 Atorvastatin [Lipitor] 20 mg PO HS 07/10/23 Levothyroxine Sodium 150 mcg PO QAM 07/10/23 lisinopriL [Prinivil] 10 mg PO QAM 07/10/23 Fenofibrate Nanocrystallized [Fenofibrate] 145 mg PO DAILY 10/14/23 Multivitamins, Thera [Multivitamin (formulary)] 1 tab PO DAILY 10/14/23 diazePAM [Valium] 5 mg PO DAILY PRN 1 Days #2 tab 10/15/23 Naloxone HCl [Narcan] 4 mg NASAL ONCE PRN 365 Days #1 each 11/23/23 HYDROcodone/APAP 7.5-325MG [[place] 7.5-325] 1 tab PO DAILY PRN 30 Days #30 tab 03/14/24 HYDROcodone/APAP 7.5-325MG [[place] 7.5-325] 1 tab PO QAM PRN 30 Days #30 tab 03/14/24 Pregabalin [Lyrica] 75 mg PO BID 30 Days #60 cap 03/14/24 Controlled Substance Measures - Controlled Substance Measures Is patient prescribed a controlled substance at discharge?: Yes When asked, does pt state using other controlled substances?: No If prescribed controlled substance>3 days was MAPS reviewed?: Yes
== END ==
LOC: PNWHC3 07:25
PROVIDERS: ATTEND Specialist
DX: M54.16 Radiculopathy, lumbar region (principal); M48.061 Spinal stenosis, lumbar region without neurogenic claudication; Z87.891 Personal history of nicotine dependence
CPT/HCPCS: 99211

== ENCOUNTER 2024-04-19 06:09 | Day surgery (SDC) | payer MEDICARE ==
[2024-04-19 06:56] VITALS: TEMP 97
[2024-04-19] MEDS ORDERED: methylPREDNISolone ACETATE 80 MG/ML 1 ML VIAL ONE (07:12)
[2024-04-19] MEDS ORDERED: ROPIVACAINE 5MG/ML 20ML VIAL ONE (07:12)
[2024-04-19] MEDS ORDERED: IOPAMIDOL M200 10 ML VIAL ONE (07:12)
[2024-04-19 07:36] VITALS: RESP 18
--- NOTE | 2024-04-19 07:40 | P.PCN ---
Description of Procedure: PREOPERATIVE DIAGNOSIS: 1- Lumbar Degenerative Disc Diseases 2-Lumbar spondylosis with Facet arthropathy without myelopathy. 3-lumbar spinal stenosis POSTOPERATIVE DIAGNOSIS: 1-lumbar degenerative disc disease. 2-lumbar spondylosis with facet arthropathy without myelopathy. 3-lumbar spinal stenosis. PROCEDURE Injection of radio contrast material into L2-3 interspace, interpretation of epidurogram, injection of steroid at L2-3 epidural space under fluoroscopic guidance. ANESTHESIA: Lidocaine 1% subcutaneously. In OR continuous pulse ox, EKG, blood pressure and verbal communication was maintained with the patient. EBL: Minimal PROCEDURE INDICATION: Before the procedure were discussed with the patient detailed procedure, alternatives, complications including infection, bleeding, nerve damage, paralysis all of which could be permanent. Patient understands and all questions were answered. Reviewed patient's MRI report. Considering his pain, his next procedures consider doing bilateral L3-4,L4-5 facet joint diagnostic medial branch block. PROCEDURE DESCRIPTION : After getting consent, patient in OR in prone position. Back was prepped with chlorhexidine and draped in sterile fashion. After injecting 10 mL of 1% lidocaine subcutaneously, a 20-gauge Tuohy needle was introduced at L2-3 interspace right paramedian with loss of resistance technique using a syringe filled with air. Negative CSF, negative blood, negative paresthesia. Needle position was confirmed with AP and lateral view of the fluoroscope. After repeat negative aspiration 2 mL of Omnipaque 200 water soluble contrast was injected. Contrast was noted in the epidural space. No contrast was noted into intrathecal or intravascular space. After repeat negative aspiration 6 mL solution was injected intermittently which consists of 5 mL of preservative-free normal saline mixed with 1 mL of 80 mg Depo-Medrol. Needle was withdrawn i ntact. Skin was cleansed and Band-Aids was applied. DISPOSITION / PLANS: The patient tolerated the procedure well. No complication. The patient was placed in a supine position and transferred to the recovery area in a stable condition for observation. There was no evidence of lower extremity motor or sensory deficit after the procedure. Patient was discharged from the recovery room after meeting discharge criteria. Home discharge instructions were given to the patient by the staff. The patient was reexamined prior to discharge. The patient will schedule a follow up in the clinic in 2-4 weeks.
[2024-04-19 07:51] VITALS: BP 126/71; PULSE 67
--- NOTE | 2024-04-19 12:16 | FL ---
EXAMINATION TYPE: FL guided pain mgmt statistic DATE OF EXAM: 04/19/2024 COMPARISON: NONE HISTORY: 73-year-old male low back pain referred for injection TECHNIQUE: Fluoroscopy. FINDINGS: Lumbar Epid Inj 33sec fluoro time .[id number] Barbara Parham 2 images submitted [facility], , 04/19/2024 12:14 PM
== END 2024-04-19 07:58 | disposition home or self-care (01) ==
LOC: ORPAIN 06:09
PROVIDERS: ATTEND Pain Medicine Interventional Pain Medicine
DX: M51.369 Other intervertebral disc degeneration, lumbar region without mention of lumbar back pain or lower extremity pain (principal); M47.816 Spondylosis without myelopathy or radiculopathy, lumbar region; M48.061 Spinal stenosis, lumbar region without neurogenic claudication
CPT/HCPCS: 62323; Q9966; J2795; J1010

== ENCOUNTER → 2024-05-16 | Outpatient (CLI) | payer MEDICARE ==
[2024-05-16 08:30] VITALS: BP 133/84; PULSE 63; RESP 17; TEMP 97.5
--- NOTE | 2024-05-16 14:52 | P.PAINPG ---
PQRS Measure Charge Sheet Comment: HISTORY OF PRESENT ILLNESS: A 73 yr old male presents today w severe and chronic mid and lower back pain x 6 mo secondary to radiculopathy, stenosis and facet arthropathy without myelopathy for medication refills and evaluation s/p SHELDON R paramedian L2-L3 #2. Pt states he experienced 50-60 % pain relief x 3 wks s/p procedure. Pt states pain level is provoked at 7 /10 in intensity, constant, localized in the lumbar spine, predominantly axial, achy in character w occasional shooting pain towards the RLE. Pain is provoked by over activity. Pain is alleviated by PT x 6 wks which was completed Aug 2023, physician guided home stretches every morning since Aug 2023, alternating heat & ice, medications, repositioning and rest. He can repeat ESIs after Jun 2024. Interventional procedures include SHELDON L2-L3 x2, R TFESI L4-L5 x1, SHELDON L1-L2 x1 Medications include [place] 7.5/325mg #60, Lyrica, Tyl, Ibu, THC products which he discontinued REVIEW OF ORGAN SYSTEMS: CONSTITUTIONAL: No fevers or chills. No recent weight loss. NEUROLOGICAL: + numbness and tingling along the distal extremities. No seizure disorders or headaches. MUSCULOSKELETAL: + pain PSYCHIATRIC: Denies current depression or suicidal thoughts. Physical Examinations : Constitutional : Cooperative , not in acute distress . Neurologic : Cranial nerve II to XII intact. No focal neurological deficits. Psychiatric : alert & oriented x 3. Matching mood & appropriate affect. Judgment & insight intact. Musculoskeletal : Cervical Spine Motor strength in the deltoid and biceps: Normal right side. Normal Left side Motor strength biceps and the wrist extensors: Normal right side . Normal left side Motor strength in the triceps muscle: Normal right side. Normal left side Deep tendon reflexes: Normal at the biceps. Normal at Brachioradialis. Normal at triceps Vertebral body tenderness to deep palpation over Cervical facet loading test: positive bilaterally Spurling test: positive bilaterally Neck distraction test: positive bilaterally Alvarado sign: positive bilaterally Lumbar spine Motor strength lower extremities ,thigh and legs 5/5 Right side , 5/5 Left side Deep tendon reflexes : Normal Knee Jerk. Normal Ankle Jerk Vertebral body tenderness over L2 Capellan Test positive R> L L2- L3 Lumbar facet Loading Test: positive Right / positive Left Range of motion of the lumbar spine Flexion 30 degrees, extension 10 degrees Straight Leg Raise test: Left/ Right positive at <30 degrees Abbey test: positive right / positive left. Severe tenderness over the Sacroiliac joint on the Right / Left sides Gaenslen test: positive bilaterally Seated flexion test: positive bilaterally. Sacral spine : Severe tenderness over the Sacroiliac joint: right side / left side Range of motion: Flexion of the lumbar spine <60 degrees Range of motion: Extension of the lumbar spine <20 degrees Gaenslen's Test positive Abbey test: positive right side / left side Thigh Thrust Test Sacral Thrust Test Imaging: MRI noncontrast of the lumbar spine from 04/06/23 reviewed Assessment/ Plan : Lumbar stenosis, lumbar radiculopathy Recommendation of medication management. Risks, benefits of procedure discussed and pt verbalized understanding. Protocol for discontinuation/ continuation of medications yoko procedure discussed. UDS from 01/18/24 reviewed and consistent. [place] 7.5/325gm #60 w 1 RF. [place] Opiate agreement renewed 05/16/24. Lyrica 75mg #60 w 1 RF. Use, side effects, adverse reactions, safe storage discussed. Lyrica Opiate/ narcotic agreement signed 08/05/23. Pt stated he has Narcan. All questions answered. I have spent greater than 30 minutes on patient care today. Dr Snow was available by phone for the evaluation of this patient. The time was used to review the medical records including relevant urine studies and Prescription history (MAPs), review of the available imaging, evaluation and examination of the patient, coordination of care with the medical staff and if applicable referring physicians, as well as creation of the medical record PQRS Narrative: Smoking Status Former smoker Hx Alcohol Use (MH) No Home Medications: Ambulatory Orders Acetaminophen [Tylenol Extra Strength] 500 - 1,000 mg PO Q4-6H PRN 07/10/23 Atorvastatin [Lipitor] 20 mg PO HS 07/10/23 Levothyroxine Sodium 175 mcg PO QAM 07/10/23 lisinopriL [Prinivil] 10 mg PO QAM 07/10/23 Fenofibrate Nanocrystallized [Fenofibrate] 145 mg PO DAILY 10/14/23 Multivitamins, Thera [Multivitamin (formulary)] 1 tab PO DAILY 10/14/23 diazePAM [Valium] 5 mg PO DAILY PRN 1 Days #2 tab 04/18/24 Ibuprofen [Advil] 2 tab PO Q4-6H PRN 04/19/24 HYDROcodone/APAP 7.5-325MG [[place] 7.5-325] 1 tab PO BID PRN 30 Days #60 tab 05/16/24 HYDROcodone/APAP 7.5-325MG [[place] 7.5-325] 1 tab PO BID PRN 30 Days #60 tab 05/16/24 Pregabalin [Lyrica] 75 mg PO BID 30 Days #60 cap 05/16/24 Controlled Substance Measures - Controlled Substance Measures Is patient prescribed a controlled substance at discharge?: Yes When asked, does pt state using other controlled substances?: Yes If prescribed controlled substance>3 days was MAPS reviewed?: Yes
== END ==
LOC: PNWHC3 08:02
PROVIDERS: ATTEND Specialist
DX: M54.16 Radiculopathy, lumbar region (principal); M48.061 Spinal stenosis, lumbar region without neurogenic claudication; Z87.891 Personal history of nicotine dependence
CPT/HCPCS: 99211

== ENCOUNTER → 2024-07-18 | Outpatient (CLI) | payer MEDICARE ==
[2024-07-18 08:28] VITALS: BP 114/70; PULSE 70; RESP 16; TEMP 97.1
--- NOTE | 2024-07-18 15:31 | P.PAINPG ---
PQRS Measure Charge Sheet Comment: HISTORY OF PRESENT ILLNESS: A 73 yr old male presents today w severe and chronic mid and lower back pain x 6 mo secondary to radiculopathy, stenosis and facet arthropathy without myelopathy for medication refills. Pt states pain level is provoked at 6-7 /10 in intensity, constant, localized in the lumbar spine, predominantly axial, achy in character w occasional shooting pain towards the RLE. Pain is provoked by over activity. Pain is alleviated by PT x 6 wks which was completed Aug 2023, physician guided home stretches every morning since Aug 2023, alternating heat & ice, medications, repositioning and rest. He can repeat ESIs after Jun 2024. Interventional procedures include SHELDON L2-L3 x2, R TFESI L4-L5 x1, SHELDON L1-L2 x1 Medications include [place] 7.5/325mg #60, Lyrica 75mg #60, Tyl, Ibu, THC products which he discontinued REVIEW OF ORGAN SYSTEMS: CONSTITUTIONAL: No fevers or chills. No recent weight loss. NEUROLOGICAL: + numbness and tingling along the distal extremities. No seizure disorders or headaches. MUSCULOSKELETAL: + pain PSYCHIATRIC: Denies current depression or suicidal thoughts. Physical Examinations : Constitutional : Cooperative , not in acute distress . Neurologic : Cranial nerve II to XII intact. No focal neurological deficits. Psychiatric : alert & oriented x 3. Matching mood & appropriate affect. Judgment & insight intact. Musculoskeletal : Cervical Spine Motor strength in the deltoid and biceps: Normal right side. Normal Left side Motor strength biceps and the wrist extensors: Normal right side . Normal left side Motor strength in the triceps muscle: Normal right side. Normal left side Deep tendon reflexes: Normal at the biceps. Normal at Brachioradialis. Normal at triceps Vertebral body tenderness to deep palpation over Cervical facet loading test: positive bilaterally Spurling test: positive bilaterally Neck distraction test: positive bilaterally Alvarado sign: positive bilaterally Lumbar spine Motor strength lower extremities ,thigh and legs 5/5 Right side , 5/5 Left side Deep tendon reflexes : Normal Knee Jerk. Normal Ankle Jerk Vertebral body tenderness over L2 Capellan Test positive R> L L2- L3 Lumbar facet Loading Test: positive Right / positive Left Range of motion of the lumbar spine Flexion 30 degrees, extension 10 degrees Straight Leg Raise test: Left/ Right positive at <30 degrees Abbey test: positive right / positive left. Severe tenderness over the Sacroiliac joint on the Right / Left sides Gaenslen test: positive bilaterally Seated flexion test: positive bilaterally. Sacral spine : Severe tenderness over the Sacroiliac joint: right side / left side Range of motion: Flexion of the lumbar spine <60 degrees Range of motion: Extension of the lumbar spine <20 degrees Gaenslen's Test positive Abbey test: positive right side / left side Thigh Thrust Test Sacral Thrust Test Imaging: MRI noncontrast of the lumbar spine from 04/06/23 reviewed Assessment/ Plan : Lumbar stenosis, lumbar radiculopathy Recommendation of medication management. Risks, benefits of procedure discussed and pt verbalized understanding. Protocol for discontinuation/ continuation of medications yoko procedure discussed. UDS collected 07/18/24. [place] 7.5/325gm #60 w 1 RF. [place] Opiate agreement renewed 05/16/24. Lyrica 75mg #60 w 1 RF. Use, side effects, adverse reactions, safe storage discussed. Lyrica Opiate/ narcotic agreement signed 08/05/23. Pt stated he has Narcan. All questions answered. I have spent greater than 30 minutes on patient care today. Dr Snow was available by phone for the evaluation of this patient. The time was used to review the medical records including relevant urine studies and Prescription history (MAPs), review of the available imaging, evaluation and examination of the patient, coordination of care with the medical staff and if applicable referring physicians, as well as creation of the medical record PQRS Narrative: Smoking Status Former smoker Narcotic Agreement Date Signed 05/16/24 Hx Alcohol Use (MH) No Home Medications: Ambulatory Orders Acetaminophen [Tylenol Extra Strength] 500 - 1,000 mg PO Q4-6H PRN 07/10/23 Atorvastatin [Lipitor] 20 mg PO HS 07/10/23 Levothyroxine Sodium 175 mcg PO QAM 07/10/23 lisinopriL [Prinivil] 10 mg PO QAM 07/10/23 Fenofibrate Nanocrystallized [Fenofibrate] 145 mg PO DAILY 10/14/23 Multivitamins, Thera [Multivitamin (formulary)] 1 tab PO DAILY 10/14/23 diazePAM [Valium] 5 mg PO DAILY PRN 1 Days #2 tab 04/18/24 Ibuprofen [Advil] 2 tab PO Q4-6H PRN 04/19/24 HYDROcodone/APAP 7.5-325MG [[place] 7.5-325] 1 tab PO BID PRN 30 Days #60 tab 07/18/24 HYDROcodone/APAP 7.5-325MG [[place] 7.5-325] 1 tab PO BID PRN 30 Days #60 tab 07/18/24 Pregabalin [Lyrica] 75 mg PO BID 30 Days #60 cap 07/18/24 Controlled Substance Measures - Controlled Substance Measures Is patient prescribed a controlled substance at discharge?: Yes When asked, does pt state using other controlled substances?: No If prescribed controlled substance>3 days was MAPS reviewed?: Yes
== END ==
LOC: PNWHC3 08:10
PROVIDERS: ATTEND Specialist
DX: M48.061 Spinal stenosis, lumbar region without neurogenic claudication (principal); M54.16 Radiculopathy, lumbar region; Z87.891 Personal history of nicotine dependence
CPT/HCPCS: 80307; 99212

== ENCOUNTER → 2024-09-12 | Outpatient (CLI) | payer MEDICARE ==
[2024-09-12 08:27] VITALS: BP 126/74; PULSE 59; RESP 16
--- NOTE | 2024-09-12 14:28 | P.PAINPG ---
PQRS Measure Charge Sheet Comment: HISTORY OF PRESENT ILLNESS: A 73 yr old male presents today w severe and chronic mid and lower back pain x 6 mo secondary to radiculopathy, stenosis and facet arthropathy without myelopathy for medication refills. Pt states pain level is provoked at 6-7 /10 in intensity, constant, localized in the lumbar spine, predominantly axial, achy in character w occasional shooting pain towards the RLE. Pain is provoked by over activity. Pain is alleviated by PT x 6 wks which was completed Aug 2023, physician guided home stretches every morning since Aug 2023, alternating heat & ice, medications, repositioning and rest. Pt wearing a L foot "boot" and stated he had L foot surgery and would like to increase [place] quantity. He is allowed to have short course of meds from his surgeon for breakthrough pain. UDS needs to be repeated today. He can repeat ESIs after Jun 2024. Interventional procedures include SHELDON L2-L3 x2, R TFESI L4-L5 x1, SHELDON L1-L2 x1 Medications include [place] 7.5/325mg #60, Lyrica 75mg #60, Tyl, Ibu, THC products which he discontinued REVIEW OF ORGAN SYSTEMS: CONSTITUTIONAL: No fevers or chills. No recent weight loss. NEUROLOGICAL: + numbness and tingling along the distal extremities. No seizure disorders or headaches. MUSCULOSKELETAL: + pain PSYCHIATRIC: Denies current depression or suicidal thoughts. Physical Examinations : Constitutional : Cooperative , not in acute distress . Neurologic : Cranial nerve II to XII intact. No focal neurological deficits. Psychiatric : alert & oriented x 3. Matching mood & appropriate affect. Judgment & insight intact. Musculoskeletal : Cervical Spine Motor strength in the deltoid and biceps: Normal right side. Normal Left side Motor strength biceps and the wrist extensors: Normal right side . Normal left side Motor strength in the triceps muscle: Normal right side. Normal left side Deep tendon reflexes: Normal at the biceps. Normal at Brachioradialis. Normal at triceps Vertebral body tenderness to deep palpation over Cervical facet loading test: positive bilaterally Spurling test: positive bilaterally Neck distraction test: positive bilaterally Alvarado sign: positive bilaterally Lumbar spine Motor strength lower extremities ,thigh and legs 5/5 Right side , 5/5 Left side Deep tendon reflexes : Normal Knee Jerk. Normal Ankle Jerk Vertebral body tenderness over L2 Capellan Test positive R> L L2- L3 Lumbar facet Loading Test: positive Right / positive Left Range of motion of the lumbar spine Flexion 30 degrees, extension 10 degrees Straight Leg Raise test: Left/ Right positive at <30 degrees Abbey test: positive right / positive left. Severe tenderness over the Sacroiliac joint on the Right / Left sides Gaenslen test: positive bilaterally Seated flexion test: positive bilaterally. Sacral spine : Severe tenderness over the Sacroiliac joint: right side / left side Range of motion: Flexion of the lumbar spine <60 degrees Range of motion: Extension of the lumbar spine <20 degrees Gaenslen's Test positive Abbey test: positive right side / left side Thigh Thrust Test Sacral Thrust Test Imaging: MRI noncontrast of the lumbar spine from 04/06/23 reviewed Assessment/ Plan : Lumbar stenosis, lumbar radiculopathy Recommendation of medication management. Risks, benefits of procedure discussed and pt verbalized understanding. Protocol for discontinuation/ continuation of medications yoko procedure discussed. Per [facility], lab stated UDS "missing" 07/18/24. Repeat UDS 09/12/24. [place] 7.5/325gm #60 w 1 RF. [place] Opiate agreement renewed 05/16/24. Lyrica 75mg #60 w 1 RF. Use, side effects, adverse reactions, safe storage discussed. Lyrica Opiate/ narcotic agreement signed 08/05/23. Pt stated he has Narcan. All questions answered. I have spent greater than 30 minutes on patient care today. Dr Snow was available by phone for the evaluation of this patient. The time was used to review the medical records including relevant urine studies and Prescription history (MAPs), review of the available imaging, evaluation and examination of the patient, coordination of care with the medical staff and if applicable referring physicians, as well as creation of the medical record PQRS Narrative: Smoking Status Former smoker Narcotic Agreement Date Signed 05/16/24 Hx Alcohol Use (MH) No Home Medications: Ambulatory Orders Acetaminophen [Tylenol Extra Strength] 500 - 1,000 mg PO Q4-6H PRN 07/10/23 Atorvastatin [Lipitor] 20 mg PO HS 07/10/23 Levothyroxine Sodium 175 mcg PO QAM 07/10/23 lisinopriL [Prinivil] 10 mg PO QAM 07/10/23 Fenofibrate Nanocrystallized [Fenofibrate] 145 mg PO DAILY 10/14/23 Multivitamins, Thera [Multivitamin (formulary)] 1 tab PO DAILY 10/14/23 diazePAM [Valium] 5 mg PO DAILY PRN 1 Days #2 tab 04/18/24 Ibuprofen [Advil] 2 tab PO Q4-6H PRN 04/19/24 HYDROcodone/APAP 7.5-325MG [[place] 7.5-325] 1 tab PO BID PRN 30 Days #60 tab 09/12/24 HYDROcodone/APAP 7.5-325MG [[place] 7.5-325] 1 tab PO BID PRN 30 Days #60 tab 09/12/24 Pregabalin [Lyrica] 75 mg PO BID 30 Days #60 cap 09/12/24 Controlled Substance Measures - Controlled Substance Measures Is patient prescribed a controlled substance at discharge?: Yes When asked, does pt state using other controlled substances?: Yes If prescribed controlled substance>3 days was MAPS reviewed?: Yes
== END ==
LOC: PNWHC3 07:55
PROVIDERS: ATTEND Specialist
DX: M48.061 Spinal stenosis, lumbar region without neurogenic claudication (principal); M54.16 Radiculopathy, lumbar region; Z87.891 Personal history of nicotine dependence
CPT/HCPCS: 80307; 99212

== ENCOUNTER → 2024-11-14 | Outpatient (CLI) | payer MEDICARE ==
[2024-11-14 08:11] VITALS: BP 131/81; PULSE 64; RESP 14
--- NOTE | 2024-11-14 15:56 | P.PAINPG ---
Objective - Vital Signs Vital signs: Vital Signs Temp Pulse 64 11/14/24 08:03 Resp 14 11/14/24 08:03 BP 131/81 11/14/24 08:03 Pulse Ox 99 11/14/24 08:03 FiO2 Intake & Output 11/13/24 11/14/24 11/14/24 18:59 06:59 18:59 Weight 97.522 kg PQRS Measure Charge Sheet Mode of Arrival: Ambulatory Comment: HISTORY OF PRESENT ILLNESS: A 74 yr old male presents today w severe and chronic mid and lower back pain > 6 mo secondary to radiculopathy, stenosis and facet arthropathy without myelopathy for medication refills. Pt states pain level is provoked at 6 /10 in intensity, constant, localized in the lumbar spine, predominantly axial, achy in character w occasional shooting pain towards the RLE. Pain is provoked by over activity. Pain is alleviated by PT x 6 wks which was completed Aug 2023, physician guided home stretches every morning since Aug 2023, alternating heat & ice, medications, repositioning and rest. Pt wearing a L foot "boot" and stated he had L foot surgery and would like to increase [place] quantity. He is allowed to have short course of meds from his surgeon for breakthrough pain. UDS needs to be repeated today. He can repeat ESIs after Jun 2024. Interventional procedures include SHELDON L2-L3 x2, R TFESI L4-L5 x1, SHELDON L1-L2 x1 Medications include [place] 7.5/325mg #60, Lyrica 75mg #60, Tyl, Ibu, THC products which he discontinued REVIEW OF ORGAN SYSTEMS: CONSTITUTIONAL: No fevers or chills. No recent weight loss. NEUROLOGICAL: + numbness and tingling along the distal extremities. No seizure disorders or headaches. MUSCULOSKELETAL: + pain PSYCHIATRIC: Denies current depression or suicidal thoughts. Physical Examinations : Constitutional : Cooperative , not in acute distress . Neurologic : Cranial nerve II to XII intact. No focal neurological deficits. Psychiatric : alert & oriented x 3. Matching mood & appropriate affect. Judgment & insight intact. Musculoskeletal : Cervical Spine Motor strength in the deltoid and biceps: Normal right side. Normal Left side Motor strength biceps and the wrist extensors: Normal right side . Normal left side Motor strength in the triceps muscle: Normal right side. Normal left side Deep tendon reflexes: Normal at the biceps. Normal at Brachioradialis. Normal at triceps Vertebral body tenderness to deep palpation over Cervical facet loading test: positive bilaterally Spurling test: positive bilaterally Neck distraction test: positive bilaterally Alvarado sign: positive bilaterally Lumbar spine Motor strength lower extremities ,thigh and legs 5/5 Right side , 5/5 Left side Deep tendon reflexes : Normal Knee Jerk. Normal Ankle Jerk Vertebral body tenderness over L2 Capellan Test positive R> L L2- L3 Lumbar facet Loading Test: positive Right / positive Left Range of motion of the lumbar spine Flexion 30 degrees, extension 10 degrees Straight Leg Raise test: Left/ Right positive at <30 degrees Abbey test: positive right / positive left. Severe tenderness over the Sacroiliac joint on the Right / Left sides Gaenslen test: positive bilaterally Seated flexion test: positive bilaterally. Sacral spine : Severe tenderness over the Sacroiliac joint: right side / left side Range of motion: Flexion of the lumbar spine <60 degrees Range of motion: Extension of the lumbar spine <20 degrees Gaenslen's Test positive Abbey test: positive right side / left side Thigh Thrust Test Sacral Thrust Test Imaging: MRI noncontrast of the lumbar spine from 04/06/23 reviewed Assessment/ Plan : Lumbar stenosis, lumbar radiculopathy Recommendation of medication management. Risks, benefits of procedure discussed and pt verbalized understanding. Protocol for discontinuation/ continuation of medications yoko procedure discussed. Repeat UDS 09/12/24 reviewed and consistent. [place] 7.5/325gm #90 w 1 RF. [place] Opiate agreement renewed 11/14/24. Lyrica 100mg #60 w 1 RF. Use, side effects, adverse reactions, safe storage discussed. Lyrica Opiate/ narcotic agreement signed 08/05/23. Pt stated he has Narcan. All questions answered. I have spent greater than 30 minutes on patient care today. Dr Snow was available by phone for the evaluation of this patient. The time was used to review the medical records including relevant urine studies and Prescription history (MAPs), review of the available imaging, evaluation and examination of the patient, coordination of care with the medical staff and if applicable referring physicians, as well as creation of the medical record - Pain Location Lower Back Non-Pharmacological Interventions: Heat, Ice Pharmacological Interventions: Medication PQRS Narrative: Smoking Status Former smoker Narcotic Agreement Date Signed 05/16/24 Blood Pressure 131/81 Pain Intensity [Lower Back] 6 Scale Used Numeric (1 - 10) Hx Alcohol Use (MH) No Home Medications: Ambulatory Orders Acetaminophen [Tylenol Extra Strength] 500 - 1,000 mg PO Q4-6H PRN 07/10/23 Atorvastatin [Lipitor] 20 mg PO HS 07/10/23 Levothyroxine Sodium 175 mcg PO QAM 07/10/23 lisinopriL [Prinivil] 10 mg PO QAM 07/10/23 Fenofibrate Nanocrystallized [Fenofibrate] 145 mg PO DAILY 10/14/23 Multivitamins, Thera [Multivitamin (formulary)] 1 tab PO DAILY 10/14/23 diazePAM [Valium] 5 mg PO DAILY PRN 1 Days #2 tab 04/18/24 Ibuprofen [Advil] 2 tab PO Q4-6H PRN 04/19/24 HYDROcodone/APAP 7.5-325MG [[place] 7.5-325] 1 tab PO TID PRN 30 Days #90 tab 11/14/24 HYDROcodone/APAP 7.5-325MG [[place] 7.5-325] 1 tab PO TID PRN 30 Days #90 tab 11/14/24 Pregabalin [Lyrica] 100 mg PO BID 30 Days #60 cap 11/14/24 Controlled Substance Measures - Controlled Substance Measures Is patient prescribed a controlled substance at discharge?: Yes When asked, does pt state using other controlled substances?: No If prescribed controlled substance>3 days was MAPS reviewed?: Yes
== END ==
LOC: PNWHC3 07:57
PROVIDERS: ATTEND Specialist
DX: M47.26 Other spondylosis with radiculopathy, lumbar region (principal); M48.061 Spinal stenosis, lumbar region without neurogenic claudication; Z87.891 Personal history of nicotine dependence
CPT/HCPCS: 99212